=== PATIENT | male | born 1975 | race Two or more races ===

== ENCOUNTER 2024-04-30 10:35 | Inpatient (IN) | payer MEDICAID ==
[~2024-04-30] VITALS: Ht 2.5 cm; Wt 0.5 kg
[2024-04-30 11:07] LABS: Basophils # (auto) 0 10 ^3/uL (0-0.2); Basophils % (auto) 0.5 % (0.0-2.0); Eosinophils # (auto) 0.1 10 ^3/uL (0-0.8); Eosinophils % (auto) 0.7 % (0.0-7.0); Hematocrit 44.9 % (41.0-53.0); Hemoglobin 15.7 g/dL (13.5-17.5); Lymphocytes # (auto) 1.4 10 ^3/uL (0.4-5.4); Lymphocytes % (auto) 15.8 % (10.0-50.0); Mean Corpuscular Hemoglobin 31.9 pg (28.0-32.0); Mean Corpuscular Hgb Conc. 34.9 g/dL (32.0-36.0); Mean Corpuscular Volume 91.4 fL (80.0-100.0); Monocytes # (auto) 0.6 10 ^3/uL (0-1.3); Monocytes % (auto) 6.6 % (0.0-12.0); Neutrophils # (auto) 6.7 10 ^3/uL (1.6-8.6); Neutrophils % (auto) 76.4 % (37.0-80.0); Platelet Count (auto) 292 10^3/uL (140-450); Red Blood Cells 4.91 10^6/uL (4.5-5.90); White Blood Cell 8.8 10^3/uL (4.4-10.8)
[2024-04-30 11:23] VITALS: PULSE 78; RESP 17; O2SAT 95
[2024-04-30 11:23] LABS: Chloride 106 mmol/L (98-107); Sodium 138 mmol/L (136-145)
[2024-04-30 11:24] LABS: Anion Gap 8 (5-15); Calcium 10.2 mg/dL (8.7-10.4); Carbon Dioxide 24 mmol/L (20-31)
[2024-04-30 11:29] LABS: Blood Urea Nitrogen 17 mg/dL (9-23); Glucose 106 mg/dL (74-106)
[2024-04-30] MEDS: PANTOPRAZOLE 40 MG/10 ML VIAL INJ IV ONE (11:30)
[2024-04-30] MEDS: ONDANSETRON HCL 4 MG/2 ML VIAL IV ONE (11:30)
[2024-04-30] MEDS: KETOROLAC TROMETH 30 MG/ML 1ML VIAL IV ONE (11:30)
[2024-04-30 11:55] LABS: Urine Bacteria None Seen /hpf (None Seen)
[2024-04-30] MEDS: FUROSEMIDE 20 MG/2 ML VIAL IV ONE (12:07)
[2024-04-30 12:11] LABS: Urine Blood 1+ /uL (Negative); Urine Clarity Clear (Clear); Urine Color Yellow (Yellow); Urine Mucus FEW (None Seen); Urine Protein, UAD 1+ (Negative); Urine Specific Gravity 1.036 (1.001-1.035); Urine Urobilinogen Normal (Negative); Urine WBC 1 /hpf (0 - 3); Urine pH 5.5 (5.0-9.0)
[2024-04-30] MEDS: cefTRIAXone 1GM/50ML D5W 50 ML IV ONE (13:12)
[2024-04-30] MEDS: SODIUM CHLORIDE 0.9% 1,000 ML IV ONE (13:12)
[2024-04-30] MEDS: TAMSULOSIN HYDROCHLORIDE 0.4 MG CAP PO ONE (13:12)
[2024-04-30] MEDS: ONDANSETRON HCL 4 MG/2 ML VIAL IV PRN (16:02)
[2024-04-30] MEDS: MORPHINE SULFATE INJ 2 MG/ml SYRG IV PRN (16:03)
[2024-04-30 21:49] VITALS: PULSE 92; RESP 16; O2SAT 95
[2024-04-30] MEDS: HYDROcodone-ACET 5/325MG TAB PO PRN (22:16)
[2024-05-01 03:48] LABS: Basophils # (auto) 0 10 ^3/uL (0-0.2); Basophils % (auto) 0.5 % (0.0-2.0); Eosinophils # (auto) 0.3 10 ^3/uL (0-0.8); Eosinophils % (auto) 3.5 % (0.0-7.0); Hematocrit 41.3 % (41.0-53.0); Hemoglobin 14.5 g/dL (13.5-17.5); Lymphocytes % (auto) 25.5 % (10.0-50.0); Mean Corpuscular Hemoglobin 32.2 pg (28.0-32.0); Mean Corpuscular Volume 91.9 fL (80.0-100.0); Monocytes # (auto) 0.8 10 ^3/uL (0-1.3); Neutrophils # (auto) 4.6 10 ^3/uL (1.6-8.6); Neutrophils % (auto) 59.5 % (37.0-80.0); Platelet Count (auto) 263 10^3/uL (140-450); Red Cell Distribution Width 12.8 % (11.8-14.3); White Blood Cell 7.7 10^3/uL (4.4-10.8)
[2024-05-01 03:53] LABS: Anion Gap 6 (5-15); Carbon Dioxide 25 mmol/L (20-31); Chloride 108 mmol/L (98-107); Potassium 3.8 mmol/L (3.5-5.1); Sodium 139 mmol/L (136-145)
[2024-05-01 03:54] LABS: Calcium 9.6 mg/dL (8.7-10.4)
[2024-05-01 03:59] LABS: BUN/Creatinine Ratio 17.3 (10.0-20.0); Blood Urea Nitrogen 17 mg/dL (9-23); Glucose 98 mg/dL (74-106)
[2024-05-01] MEDS: cefTRIAXone 1GM/50ML D5W 50 ML IV SCH (09:07)
[2024-05-01] MEDS: PANTOPRAZOLE 40 MG/10 ML VIAL INJ IV SCH (09:07)
[2024-05-01 12:24] VITALS: BP 114/71; PULSE 82; RESP 18; TEMP 97.8; O2SAT 96
[2024-05-01] MEDS ORDERED: TAMS-35 PO (14:57)
[2024-05-01] MEDS ORDERED: ZOFR4T PO (14:57)
[2024-05-01] MEDS ORDERED: HYDR-4072 PO (14:57)
[2024-05-01 16:00] VITALS: BP 128/62; PULSE 78; RESP 16; TEMP 98; O2SAT 97
[2024-05-01] MEDS ORDERED: TAMSULOSIN HYDROCHLORIDE 0.4 MG CAP PO SCH (18:00)
== END 2024-05-01 16:37 | disposition home or self-care (01) | DRG 694 ==
LOC: EDBD 10:35 → ER 10:35 → OVERFLOW 15:12
PROVIDERS: ADMIT Registered Nurse General Practice; ATTEND Student in an Organized Health Care Education/Training Program
DX: N13.2 Hydronephrosis with renal and ureteral calculous obstruction (principal); I10 Essential (primary) hypertension; E78.5 Hyperlipidemia, unspecified; E86.9 Volume depletion, unspecified; Z90.49 Acquired absence of other specified parts of digestive tract
CPT/HCPCS: 36415; 74176; 76775; 80048; 81001; 83690; 85025; G0378; J1885; J2405; J2470